=== PATIENT | female | born 1975 | race Caucasian/White ===

== ENCOUNTER 2019-03-09 08:22 | Emergency (ER) | payer OTHER ==
[2019-03-09 08:34] VITALS: BP 144/87
[2019-03-09] MEDS ORDERED: Ibuprofen TAB* 600 MG PO ONE (08:45)
--- NOTE | 2019-03-09 09:31 | UC ---
Hip/Pelvis Pain - HPI Summary HPI Summary: 43 yo female with right hip pain radiating in a band like fashion to right lateral knee x 2 weeks Also has LBP no bowel or baldder dysfunction no numbness no injury worse when ambulating hurts to lay on right sided - History Of Current Complaint Chief Complaint: UCLowerExtremity Stated Complaint: RT HIP/LEG PAIN Time Seen by Provider: 03/09/19 08:34 Hx Obtained From: Patient Hx Last Menstrual Period: [id number] Onset/Duration: Gradual Onset, Lasting Weeks, Worse Since - daily Timing: Constant Severity Initially: Mild Severity Currently: Severe Pain Intensity: 9 - has take no meds today Pain Scale Used: 0-10 Numeric Character Of Pain: Aching, Throbbing, Stiffness Aggravating Factor(s): Weight Bearing Alleviating Factor(s): Rest Associated Signs And Symptoms: Positive: Swelling Female Torso: 1 - pain here 2 - pain radiated here to lateral knee - Allergies/Home Medications Allergies/Adverse Reactions: Allergies Allergy/AdvReac Type Severity Reaction Status Date / Time naproxen Allergy Dizziness Verified 03/09/19 08:34 Home Medications: Home Medications LORazepam [Ativan 1 MG TAB] 1 mg PO TID PRN 03/09/19 [History Confirmed 03/09/19 ] buPROPion TAB* [Wellbutrin TAB*] 100 mg PO DAILY PRN 03/09/19 [History Confirmed 03/09/19] PMH/Surg Hx/FS Hx/Imm Hx Previously Healthy: Yes Psychological History: Anxiety - Surgical History Surgical History: Yes Surgery Procedure, Year, and Place: tubal - Family History Known Family History: Positive: Hypertension - Social History Alcohol Use: Rare Substance Use Type: None Smoking Status (MU): Never Smoked Tobacco Review of Systems All Other Systems Reviewed And Are Negative: Yes Constitutional: Positive: Negative Skin: Positive: Negative Eyes: Positive: Negative ENT: Positive: Negative Respiratory: Positive: Negative Cardiovascular: Positive: Negative Gastrointestinal: Positive: Negative Genitourinary: Positive: Negative Motor: Positive: Negative Neurovascular: Positive: Negative Musculoskeletal: Positive: Arthralgia - right hip Neurological: Positive: Negative Psychological: Positive: Negative Physical Exam Triage Information Reviewed: Yes Appearance: Well-Appearing, No Pain Distress, Well-Nourished Vital Signs: Initial Vital Signs Temp 98.6 F 03/09/19 08:29 Pulse 85 03/09/19 08:29 Resp 20 03/09/19 08:29 BP 144/87 03/09/19 08:29 Pulse Ox 100 03/09/19 08:29 Vital Signs Reviewed: Yes Eyes: Positive: Conjunctiva Clear ENT: Positive: Hearing grossly normal. Negative: Nasal congestion, Nasal drainage, Trismus, Muffled voice, Hoarse voice Neck: Positive: Supple, No Lymphadenopathy Respiratory: Positive: Lungs clear, Normal breath sounds, No respiratory distress, No accessory muscle use Cardiovascular: Positive: RRR, No Murmur Abdomen Description: Positive: Nontender, No Organomegaly. Negative: CVA Tenderness (R), CVA Tenderness (L) Bowel Sounds: Positive: Present Musculoskeletal: Positive: ROM Intact, No Edema, Other: - right hip- tender greater troch, no pain iwht axila compression, pain with ext rotatin antalgic gait Neurological: Positive: Alert Psychological Exam: Normal Skin Exam: Normal - Additional Comments back- some midline tenderness L2-L5 -SLR Diagnostics - Radiology No standard instances Radiology Interpretation Completed By: Radiologist Summary of Radiographic Findings: L-S; mild DDD. right hip and pelvis: negative Hip Injury Course/Dx - Differential Dx/Diagnosis Provider Diagnosis: Acute right hip pain, Elevated BP without diagnosis of hypertension Discharge - Sign-Out/Discharge Documenting (check all that apply): Patient Departure All imaging exams completed and their final reports reviewed: Yes - Discharge Plan Condition: Stable Disposition: HOME Prescriptions: Cyclobenzaprine (NF) [Cyclobenzaprine 5 MG (NF)] 5 mg PO TID PRN #21 tab PRN Reason: Spasms - Muscle Ibuprofen TAB* [Motrin TAB*] 600 mg PO QID PRN #40 tab PRN Reason: Pain Patient Education Materials: Hip Pain (ED) Referrals: Albert Harrison MD [Primary Care Provider] - 2 Weeks (BP recheck in 2-12 weeks) Carlos Tomas MD [Medical Doctor] - As Soon As Possible Additional Instructions: I am unsure of the cause of your hip pain I suggest you see an orthopedic shoe maker for further evaluation - Billing Disposition and Condition Condition: STABLE Disposition: Home
== END 2019-03-09 09:35 | disposition home or self-care (01) ==
LOC: UCEAST 08:22
DX: M25.551 Pain in right hip (principal); R03.0 Elevated blood-pressure reading, without diagnosis of hypertension
CPT/HCPCS: 72110; 99212; A9270-GY; G0463